=== PATIENT | male | born 2000 | race Caucasian/White ===

== ENCOUNTER 2022-08-13 17:15 | Emergency (ER) | payer OTHER, SELFPAY ==
--- OUTSIDE RECORDS SUMMARY | 2022-08-13 17:20 | XMS REPORT | Continuity of Care Document ---
:2000 Author Organization [facility] t Address [address] [place] [address] Care Team Providers Name Role Phone SouleymaneIrena dyeradam Primary Care Physician Sofia Carreno RN Attending Clinician Unavailable GARRISON CLIFTON Attending Clinician Unavailable Only, Ang Db Test Attending Clinician Unavailable Garrison Clifton MD Attending Clinician ANGELA ALBA Attending Clinician Unavailable AIMEE BURGOS Attending Clinician Unavailable Payers Payer Name Policy Type Policy Number Effective Date Expiration Date S ource Problems Condition Condition Condition Status Onset Resolution Last Treating Co mments Source Name Details Category Date Date Treatment Clinician Date Childhood Childhood Disease Active Uni vers obesity obesity 2-19 ity of 00:00: [address] 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 -31 ity of 00:00: [address] Excessive Excessive Disease Active Uni vers weight weight 7-20 ity of gain gain 00:00: [address] Allergies, Adverse Reactions, Alerts Allergy Allergy Status Severity Reaction(s) Onset Inactive Treating Comm ents Source Name Type Date Date Clinician NO KNOWN Drug Active Univers ALLERGIE Class ity of [facility] Social History Social Habit Start Date Stop Date Quantity Comments Source Exposure to Yes [facility] SARS-CoV-2 [facility] (event) Branch Alcohol intake 2015-06-14 2015-06-14 Current University of 00:00:00 00:00:00 non-drinker of [facility] alcohol Branch (finding) Tobacco use and 2013-11-28 2013-11-28 Never used Universit y of exposure 00:00:00 00:00:00 [facility] Sex Assigned At [birth year] Universit y of 00:00:00 00:00:00 [facility] Smoking Status Start Date Stop Date Source Never smoker [facility] Medications Ordered Filled Start Stop Current Ordering Indication Dosage Frequency Signature Comments Components Source Medication Medication Date Date Medication? Clinician (SIG) Name Name omeprazole 2019-0 Yes Take by [facility] ers (PRILOSEC 4-04 mouth ity of ORAL) 10:45: daily. [address] omeprazole 2019-0 Yes Take by [facility] ers (PRILOSEC 4-04 mouth ity of ORAL) 10:45: daily. [address] Immunizations Ordered Immunization Filled Date Status Comments Sour ce Name Immunization Name HPV 2014-09-01 Completed University of 00:00:00 [facility] Influenza Virus 2014-09-01 Completed Universit y of Vaccine Quad IM 3+ YRS 00:00:00 [facility] HPV 2014-09-01 Completed University of 00:00:00 [facility] Influenza Virus 2014-09-01 Completed Universit y of Vaccine Quad IM 3+ YRS 00:00:00 [facility] Varicella 2014-06-22 Completed University of (varivax)(chicken pox) 00:00:00 [facility] Varicella 2014-06-22 Completed University of (varivax)(chicken pox) 00:00:00 [facility] HPV 2014-01-23 Completed University of 00:00:00 [facility] Varicella 2014-01-23 Completed University of (varivax)(chicken pox) 00:00:00 [facility] HPV 2014-01-23 Completed University of 00:00:00 [facility] Varicella 2014-01-23 Completed University of (varivax)(chicken pox) 00:00:00 [facility] Meningococcal 2013-11-28 Completed University of [facility] 00:00:00 [facility] ical (groups A, C, Y and Branc h W-135) conjugate vaccine (MCV4O) TDAP 2013-11-28 Completed University of 00:00:00 [facility] HPV 2013-11-28 Completed University of 00:00:00 [facility] Influenza Virus 2013-11-28 Completed Universit y of Vaccine Nasal 00:00:00 [facility] Meningococcal 2013-11-28 Completed University of Oligosaccharide 00:00:00 [facility] (groups A, C, Y and Branc h W-135) conjugate vaccine (MCV4O) TDAP 2013-11-28 Completed University of 00:00:00 [facility] HPV 2013-11-28 Completed University of 00:00:00 [facility] Influenza Virus 2013-11-28 Completed Universit y of Vaccine Nasal 00:00:00 [facility] HEPATITIS A 2006-03-06 Completed University of 00:00:00 [facility] HEPATITIS A 2006-03-06 Completed University of 00:00:00 [facility] DTAP 2005-09-05 Completed University of 00:00:00 [facility] HEPATITIS A 2005-09-05 Completed University of 00:00:00 [facility] MMR 2005-09-05 Completed University of 00:00:00 [facility] Pneumococcal 7 2005-09-05 Completed University of Conjugate, PCV7 00:00:00 [facility] ical (Prevnar7) [place] Polio (IPV/OPV) 2005-09-05 Completed Universit y of 00:00:00 [facility] DTAP 2005-09-05 Completed University of 00:00:00 [facility] HEPATITIS A 2005-09-05 Completed University of 00:00:00 [facility] MMR 2005-09-05 Completed University of 00:00:00 [facility] Pneumococcal 7 2005-09-05 Completed University of Conjugate, PCV7 00:00:00 [facility] ical (Prevnar7) Branch Polio (IPV/OPV) 2005-09-05 Completed Universit y of 00:00:00 [facility] MMR 2002-07-01 Completed University of 00:00:00 [facility] MMR 2002-07-01 Completed University of 00:00:00 [facility] DTAP 2002-01-07 Completed University of 00:00:00 [facility] HIB 4 Dose Schedule 2002-01-07 Completed Unive rsity of 00:00:00 [facility] Hep B, Adol or Pedi 2002-01-07 Completed Unive rsity of Dosage 00:00:00 [facility] Polio (IPV/OPV) 2002-01-07 Completed Universit y of 00:00:00 [facility] DTAP 2002-01-07 Completed University of 00:00:00 [facility] HIB 4 Dose Schedule 2002-01-07 Completed Unive rsity of 00:00:00 [facility] Branch Hep B, Adol or Pedi 2002-01-07 Completed Unive rsity of Dosage 00:00:00 [facility] Polio (IPV/OPV) 2002-01-07 Completed Universit y of 00:00:00 [facility] DTAP 2001 Completed University of 00:00:00 [facility] HIB 4 Dose Schedule 2001 Completed Unive rsity of 00:00:00 [facility] Polio (IPV/OPV) 2001 Completed Universit y of 00:00:00 [facility] DTAP 2001 Completed University of 00:00:00 [facility] HIB 4 Dose Schedule 2001 Completed Unive rsity of 00:00:00 [facility] Polio (IPV/OPV) 2001 Completed Universit y of 00:00:00 [facility] DTAP 2001 Completed University of 00:00:00 [facility] HIB 4 Dose Schedule 2001 Completed Unive rsity of 00:00:00 [facility] Hep B, Adol or Pedi 2001 Completed Unive rsity of Dosage 00:00:00 [facility] Polio (IPV/OPV) 2001 Completed Universit y of 00:00:00 [facility] DTAP 2001 Completed University of 00:00:00 [facility] HIB 4 Dose Schedule 2001 Completed Unive rsity of 00:00:00 [facility] Hep B, Adol or Pedi 2001 Completed Unive rsity of Dosage 00:00:00 [facility] Polio (IPV/OPV) 2001 Completed Universit y of 00:00:00 [facility] Hep B, Adol or Pedi 2001 Completed Unive rsity of Dosage 00:00:00 [facility] Hep B, Adol or Pedi 2001 Completed Unive rsity of Dosage 00:00:00 [facility] Procedures This patient has no known procedures. Encounters Start End Encounter Admission Attending Care Care Encounter Source Date/Time Date/Time Type Type Clinicians Facility Department ID 2021-10-27 2021-10-27 Telephone MEGAN Carreno [id number] Univers 00:00:00 00:00:00 Sofia LOPEZ [id number] [facility] [id number] [place] [id number] [address] 2021-10-26 2021-10-26 Outpatient R [facility] [id number] Univers 11:00:00 11:00:00 [id number] [facility] 2021-10-26 2021-10-26 Outpatient R BI [facility] [id number] Univers 11:00:00 11:00:00 GARRISON [facility] 2021-10-26 2021-10-26 Laboratory Only, Ang Db Test [facility] [id number] Univers 11:00:00 11:00:00 [id number] [id number] [place] MONTEZ?BLEA [id number] [address] MEDICAL OFFICE BUILDING 2020-07-02 2020-07-02 Outpatient Ana Maria ALBA [facility] [id number] Univers 15:00:00 15:00:00 ANGELA [facility] 2020-07-02 2020-07-02 [facility] [id number] Univers 15:00:00 15:00:00 ANGELA [facility] 2020-06-25 2020-06-25 Outpatient Ana Maria ALBA [facility] [id number] Univers 11:00:00 11:00:00 ANGELA [id number] [facility] 2020-06-25 2020-06-25 Outpatient Ana Maria ALBA [facility] [id number] Univers 11:00:00 11:00:00 ANGELA [facility] 2020-06-21 2020-06-21 Outpatient R LORETTA [facility] [id number] Univers 15:00:00 15:00:00 AIMEE marcum f [facility] 2020-06-21 2020-06-21 Outpatient Ana Maria BURGOS [facility] [id number] Univers 10:45:00 10:45:00 AIMEE [id number] ity o f [facility] Results This patient has no known results.
[2022-08-13] MEDS ORDERED: FAMOTIDINE 20 MG/2 ML VIAL IV ONE (17:27)
[2022-08-13] MEDS ORDERED: METHYLPREDNISOLONE 125 MG INJ ONE (17:27)
[2022-08-13] MEDS ORDERED: NA CHLORIDE 0.9% 1,000 ML ONE (17:27)
[2022-08-13] MEDS ORDERED: DIPHENHYDRAMINE 50 MG/ML VIAL ONE (17:27)
--- NOTE | 2022-08-13 19:21 | ER ---
Nurse's Notes [facility] Name: Rajeev Regalado Age: 22 yrs Sex: Male : 2000 Arrival Date: 08/13/2022 Time: 17:16 Bed 5 Private MD: Diagnosis: Allergic urticaria Presentation: 08/13 17:24 Chief complaint: Patient states: i was coming home and a wasp stung me in the back of tw2 the neck. i got really angry after that i started crying and felt overwhelmed. and my right eye swollen and im red all over. Parent and/or Guardian states: given benadryl [employer]. Coronavirus screen: At this time, the client does not indicate any symptoms associated with coronavirus-19. Ebola Screen: Patient denies travel to an Ebola-affected area in the 21 days before illness onset. Onset: The symptoms/episode began/occurred acutely. Anaphylaxis evaluation, the patient reports or I have noted the following symptoms which indicate a significant risk of anaphylaxis: lump in the throat which may suggest laryngeal edema nausea, vomiting, and/or diarrhea urticaria getting horse like a lump in throat and swelling noted in lips. Note provider david brooks in triage. Note pt threw up a very large amount in triage. 17:24 Method Of Arrival: Ambulatory tw2 17:42 Acuity: MACIEL 2 hb 19:28 Initial Sepsis Screen: Does the patient meet any 2 criteria? No. Patient's initial tw5 sepsis screen is negative. Does the patient have a suspected source of infection? No. Patient's initial sepsis screen is negative. Risk Assessment: Do you want to hurt yourself or someone else? Patient reports no desire to harm self or others. Onset of symptoms is unknown. Triage Assessment: 17:28 General: Appears uncomfortable, Behavior is cooperative. Pain: Complains of pain in tw2 abdomen. Derm: Skin temperature is warm Rash noted that is red, raised. Historical: - Allergies: 17:27 Wasps; tw2 - Home Meds: 17:27 None [Active]; tw2 - PMHx: 17:27 None; tw2 - Immunization history:: Adult Immunizations. - Social history:: Smoking status: . Screenin:55 Abuse screen: Denies threats or abuse. Denies injuries from another. Nutritional hb screening: No deficits noted. Tuberculosis screening: No symptoms or risk factors identified. Fall Risk None identified. Assessment: 18:29 Reassessment: family states his symptoms have improved, there is less swelling in his iw face, pt is till red in face, HR down to 85, SR . pt moved to ER bed 5 , placed on monitor. 18:36 General: Appears comfortable, Behavior is calm, cooperative. Pain: Denies pain. Neuro: aa5 Level of Consciousness is awake, alert, obeys commands, Oriented to person, place, time, situation, Appropriate for age. Cardiovascular: Heart tones S1 S2 present Rhythm is regular. Respiratory: Airway is patent Respiratory effort is even, unlabored, Respiratory pattern is regular, symmetrical, Breath sounds are clear bilaterally. GI: Abdomen is flat, non-distended, Bowel sounds present X 4 quads. Abd is soft and non tender X 4 quads. Patient currently denies nausea, vomiting. : No signs and/or symptoms were reported regarding the genitourinary system. EENT: swelling noted to eyelids. Derm: Skin is dry, Skin is red, Skin temperature is warm. Musculoskeletal: Range of motion: intact in all extremities. 18:36 Reassessment: Pt denies itching, reports redness throughout body has improved . aa5 19:27 Reassessment: Patient states feeling better. Patient states symptoms have improved. tw5 Vital Signs: 17:24 BP 107 / 65; Pulse 125; Resp 17; Temp 98.4(TE); Pulse Ox 97% on R/A; Weight 77.11 kg tw2 (R); Height 5 ft. 8 in. (172.72 cm); Pain 3/10; 18:30 BP 113 / 74; Pulse 85; Resp 20; Pulse Ox 99% on R/A; iw 18:53 BP 113 / 70; Pulse 85; Resp 20 S; Pulse Ox 99% on R/A; Pain 0/10; aa5 19:27 BP 111 / 69; Pulse 95; Resp 18; Pulse Ox 97% on R/A; tw5 17:24 Body Mass Index 25.85 (77.11 kg, 172.72 cm) tw2 ED Course: 17:16 Patient arrived in ED. am2 17:19 [facility]C [facility] kb 17:19 Jose C Ortiz MD is Attending Physician. kb 17:28 Arm band placed on. tw2 17:42 Triage completed. hb 17:55 Kathleen Rooney, RN is Primary Nurse. hb 17:55 Patient has correct armband on for positive identification. hb 19:27 No provider procedures requiring assistance completed. intact, bleeding controlled, No tw5 redness/swelling at site. Pressure dressing applied. Administered Medications: 17:33 Drug: Pepcid (famotidine) 20 mg Route: IVP; Site: right antecubital; kb 18:36 Follow up: Response: No adverse reaction aa5 17:33 Drug: Benadryl (diphenhydrAMINE) 25 mg Route: IVP; Site: right antecubital; kb 18:36 Follow up: Response: No adverse reaction aa5 17:34 Drug: NS 0.9% 1000 ml Route: IV; Rate: 1000 ml; Site: right antecubital; kb 18:36 Follow up: IV Status: Completed infusion; IV Intake: 1000ml aa5 17:34 Drug: SOLU-Medrol (methylPrednisoLONE) 125 mg Route: IVP; Site: right antecubital; kb 18:36 Follow up: Response: No adverse reaction aa5 19:28 Drug: predniSONE 40 mg Route: PO; tw5 19:50 Follow up: Response: No adverse reaction hb Medication: 19:27 VIS not applicable for this client. tw5 Intake: 18:36 IV: 1000ml; Total: 1000ml. aa5 Outcome: 19:20 Discharge ordered by . kb 19:27 Discharged to home ambulatory, with family. tw5 19:27 Condition: good 19:27 Discharge instructions given to patient, Instructed on discharge instructions, follow up and referral plans. medication usage, Demonstrated understanding of instructions, follow-up care, medications, Prescriptions given X 2. 19:31 Patient left the ED. tw5 Signatures: Connie Hancock, DAVID-Albaro MORRISP-CkJory Mejia RN OVIDIO Martita Bonilla RN RN aa5 Kathleen Rooney RN RN Clarice Henry RN RN tw2 Sariah Dickson am2 Araceli Munroe tw5 Corrections: (The following items were deleted from the chart) 17:28 17:27 PMHx: None; tw2 tw2 17:28 17:27 PMHx: blood clotting disorder; tw2 tw2
--- NOTE | 2022-08-13 19:21 | EDPHYS ---
Physician Documentation [facility] Name: Rajeev Regalado Age: 22 yrs Sex: Male : 2000 Arrival Date: 08/13/2022 Time: 17:16 Bed 5 Private MD: ED Physician Jose C Ortiz HPI: 08/13 17:53 This 22 yrs old Male presents to ER via Ambulatory with complaints of Allergic kb Reaction, Nausea/Vomiting, Eye Swelling, Bee Sting. 17:53 The patient presents with diffuse swelling, itching, rash, redness of skin. Onset: The kb symptoms/episode began/occurred just prior to arrival. Associated signs and symptoms: Pertinent positives: hives, nausea, rash, swelling, vomiting. Possible causes: wasp. At home the patient or guardian has treated the symptoms with Benadryl. Severity of symptoms: At their worst the symptoms were moderate severe in the emergency department the symptoms are unchanged. The patient has not experienced similar symptoms in the past. The patient has not recently seen a physician. Pt was stung by a wasp, skin started tingling all over and itching, looked in the mirror and saw that he was swollen and red.. Historical: - Allergies: 17:27 Wasps; tw2 - Home Meds: 17:27 None [Active]; tw2 - PMHx: 17:27 None; tw2 - Immunization history:: Adult Immunizations. - Social history:: Smoking status: . ROS: 17:51 Constitutional: Negative for fever, chills, and weight loss. kb 17:51 Skin: Positive for erythema, rash, swelling, diffusely. 17:51 Allergy/Immunology: Positive for rash, diffusely. 17:51 All other systems are negative. 17:52 Abdomen/GI: Positive for nausea and vomiting. kb Exam: 17:52 Constitutional: This is a well developed, well nourished patient who is awake, alert, kb and in no acute distress. Head/Face: Normocephalic, atraumatic. ENT: Moist Mucous membranes Cardiovascular: Regular rate and rhythm with a normal S1 and S2. No gallops, murmurs, or rubs. No pulse deficits. Respiratory: Respirations even and unlabored. No increased work of breathing. Talking in full sentences Abdomen/GI: Soft, non-tender. No distention MS/ Extremity: Pulses equal, no cyanosis. Neurovascular intact. Full, normal range of motion. Neuro: Awake and alert, GCS 15, oriented to person, place, time, and situation. Moves all extremities. Normal gait. Psych: Awake, alert, with orientation to person, place and time. Behavior, mood, and affect are within normal limits. 17:52 Skin: rash a severe rash is noted, rash can be described as erythematous, urticarial, consistent with urticaria, and is diffusely located. Vital Signs: 17:24 BP 107 / 65; Pulse 125; Resp 17; Temp 98.4(TE); Pulse Ox 97% on R/A; Weight 77.11 kg tw2 (R); Height 5 ft. 8 in. (172.72 cm); Pain 3/10; 18:30 BP 113 / 74; Pulse 85; Resp 20; Pulse Ox 99% on R/A; iw 18:53 BP 113 / 70; Pulse 85; Resp 20 S; Pulse Ox 99% on R/A; Pain 0/10; aa5 19:27 BP 111 / 69; Pulse 95; Resp 18; Pulse Ox 97% on R/A; tw5 17:24 Body Mass Index 25.85 (77.11 kg, 172.72 cm) tw2 Procedures: 17:34 Peripheral line: by aseptic technique a peripheral line was placed in the right kb antecubital vein. MDM: 17:19 Patient medically screened. kb 17:34 Data reviewed: vital signs, nurses notes. Data interpreted: Pulse oximetry: on room air kb is 97 %. Interpretation: normal. 19:20 Counseling: I had a detailed discussion with the patient and/or guardian regarding: the kb historical points, exam findings, and any diagnostic results supporting the discharge/admit diagnosis, the need for outpatient follow up, a family practitioner, to return to the emergency department if symptoms worsen or persist or if there are any questions or concerns that arise at home. ED course: Symptoms resolved after treatment. . 08/13 17:26 Order name: IV Start; Complete Time: 17:34 kb Administered Medications: 17:33 Drug: Pepcid (famotidine) 20 mg Route: IVP; Site: right antecubital; kb 18:36 Follow up: Response: No adverse reaction aa5 17:33 Drug: Benadryl (diphenhydrAMINE) 25 mg Route: IVP; Site: right antecubital; kb 18:36 Follow up: Response: No adverse reaction aa5 17:34 Drug: NS 0.9% 1000 ml Route: IV; Rate: 1000 ml; Site: right antecubital; kb 18:36 Follow up: IV Status: Completed infusion; IV Intake: 1000ml aa5 17:34 Drug: SOLU-Medrol (methylPrednisoLONE) 125 mg Route: IVP; Site: right antecubital; kb 18:36 Follow up: Response: No adverse reaction aa5 19:28 Drug: predniSONE 40 mg Route: PO; tw5 19:50 Follow up: Response: No adverse reaction hb Disposition Summary: 08/13/22 19:20 Discharge Ordered Location: Home kb Condition: Stable kb Diagnosis - Allergic urticaria kb Followup: kb - With: Emergency Department - When: As needed - Reason: Worsening of condition Followup: kb - With: Private Physician - When: 2 - 3 days - Reason: Recheck today's complaints Discharge Instructions: - Discharge Summary Sheet kb - Bee, Wasp, or Hornet Sting, Adult kb - Hives, [id number] kb Forms: - Medication Reconciliation Form kb - Thank You Letter kb - Antibiotic Education kb - Prescription Opioid Use kb Prescriptions: - Pepcid 20 mg Oral Tablet - take 1 tablet by ORAL route every 12 hours for 5 days; 10 tablet; Refills: 0, kb Product Selection Permitted - Prednisone 20 mg Oral Tablet - take 1 tablet by ORAL route once daily for 5 days; 5 tablet; Refills: 0, kb Product Selection Permitted Signatures: Connie Hancock FNP-Albaro MORRISP-Clarice Gore RN RN tw2 Araceli Munroe tw5 Martita Bonilla RN aa5 Kathleen Rooney RN Corrections: (The following items were deleted from the chart) 17: 17:27 PMHx: None; 17: 17:27 PMHx: blood clotting disorder;
[2022-08-13] MEDS ORDERED: predniSONE 20 MG TAB ONE (19:24)
[2022-08-13 19:56] VITALS: TEMP 98.4
[2022-08-13 20:00] VITALS: BP 111/69; O2SAT 97
== END 2022-08-13 19:31 | disposition home or self-care (01) ==
LOC: ER 17:15
DX: L50.0 Allergic urticaria (principal); R11.2 Nausea with vomiting, unspecified; Z91.038 Other insect allergy status
CPT/HCPCS: 96361; 96375; 96374; 99283; 36569; J1200; J7512; J7030; J2930